=== PATIENT | male | born 1950 | race Caucasian/White ===

== ENCOUNTER 2020-05-18 11:13 | Outpatient (REF) | payer MEDICARE, OTHER, SELFPAY ==
[2020-05-18 13:56] LABS: MANUAL DIFF FLAG NO
[2020-05-18 14:02] LABS: Basophils Percent Auto 0.4 % (0-2); Eosinophils Absolute Auto 0.1 X10*3/uL (0.0-0.4); Eosinophils Percent Auto 2.5 % (0-4); Hematocrit 40.3 % (42-52); Hemoglobin 13.4 g/dl (14.0-18.0); Imm Gran Abs Auto 0.01 X10*3/uL (0.00-0.03); Imm Gran Pct Auto 0.2 % (0.0-0.4); Lymphocytes Absolute Auto 1.6 X10*3/uL (1.2-4.9); Lymphocytes Percent Auto 28.4 % (20-40); Mean Corpuscular HGB Conc 33.3 g/dl (31.0-36.0); Mean Corpuscular Hemoglobin 30.7 pg (27.0-33.0); Mean Corpuscular Volume 92.2 fL (80-98); Mean Platelet Volume 11.2 fL (9.4-12.4); Monocytes Absolute Auto 0.4 X10*3/uL (0.1-1.2); Monocytes Percent Auto 7.6 % (2-11); Neutrophils Absolute Auto 3.4 X10*3/uL (2.0-8.3); Neutrophils Percent Auto 60.9 % (45-73); Platelet Count 191 X10*3/uL (160-400); Red Blood Count 4.37 X10*6/uL (4.60-5.80); White Blood Count 5.5 X10*3/uL (4.8-10.8)
[2020-05-18 14:22] LABS: Estimated Average Glucose 111 mg/dL; Hemoglobin A1c % 5.5 %
[2020-05-18 14:37] LABS: Alanine Aminotransferase 16 U/L (0-40); Albumin Level 4.1 g/dL (3.5-5.0); Alkaline Phosphatase 44 U/L (39-117); Anion Gap 12 (12-20); Aspartate Amino Transferase 18 U/L (5-37); Bilirubin Total 0.7 mg/dL (0.0-1.0); Blood Urea Nitrogen 23 mg/dL (9-16); Calcium 8.6 mg/dL (8.4-10.2); Carbon Dioxide 29 mmol/L (22-29); Chloride 105 mmol/L (96-108); Estimated Glomerular Filt Rate > 60; Glucose Random 97 mg/dL (60-115); Potassium 4.4 mmol/l (3.3-5.1); Sodium 142 mmol/L (135-145); Total Protein 6.5 g/dL (6.5-8.0)
[2020-05-18 14:51] LABS: Creatinine Urine 30.78 mg/dL; Microalbumin Urine < 5.0 mg/L
== END 2020-05-18 11:14 | disposition home or self-care (01) ==
LOC: HO.10HDL 11:13
PROVIDERS: Visit Provider Internal Medicine
DX: E11.9 Type 2 diabetes mellitus without complications (principal); E78.00 Pure hypercholesterolemia, unspecified
CPT/HCPCS: 36415; 80053; 82043; 83036; 85025

== ENCOUNTER 2020-09-22 09:46 | Outpatient (REF) | payer MEDICARE, OTHER, SELFPAY ==
[2020-09-22 10:10] LABS: MANUAL DIFF FLAG NO
[2020-09-22 10:13] LABS: Basophils Percent Auto 0.7 % (0-2); Eosinophils Absolute Auto 0.1 X10*3/uL (0.0-0.4); Eosinophils Percent Auto 1.8 % (0-4); Hemoglobin 13.7 g/dl (14.0-18.0); Imm Gran Abs Auto 0.01 X10*3/uL (0.00-0.03); Imm Gran Pct Auto 0.2 % (0.0-0.4); Lymphocytes Absolute Auto 1.3 X10*3/uL (1.2-4.9); Lymphocytes Percent Auto 29.7 % (20-40); Mean Corpuscular HGB Conc 33.4 g/dl (31.0-36.0); Mean Corpuscular Hemoglobin 30.9 pg (27.0-33.0); Mean Corpuscular Volume 92.6 fL (80-98); Mean Platelet Volume 10.6 fL (9.4-12.4); Monocytes Absolute Auto 0.3 X10*3/uL (0.1-1.2); Monocytes Percent Auto 6.4 % (2-11); Neutrophils Absolute Auto 2.8 X10*3/uL (2.0-8.3); Neutrophils Percent Auto 61.2 % (45-73); Platelet Count 179 X10*3/uL (160-400); Red Blood Count 4.43 X10*6/uL (4.60-5.80); Red Cell Distribution Width 13.2 % (11.0-16.0); White Blood Count 4.5 X10*3/uL (4.8-10.8)
[2020-09-22 10:35] LABS: Estimated Average Glucose 108 mg/dL; Hemoglobin A1c % 5.4 %
[2020-09-22 10:50] LABS: Alanine Aminotransferase 16 U/L (0-40); Albumin Level 4.1 g/dL (3.5-5.0); Alkaline Phosphatase 46 U/L (39-117); Anion Gap 13 (12-20); Aspartate Amino Transferase 17 U/L (5-37); Blood Urea Nitrogen 16 mg/dL (9-16); Calcium 8.4 mg/dL (8.4-10.2); Carbon Dioxide 27 mmol/L (22-29); Chloride 105 mmol/L (96-108); Cholesterol 154 mg/dL; Estimated Glomerular Filt Rate > 60; Glucose Fasting 111 mg/dL (60-99); HDL Cholesterol 74 mg/dL; LDL Cholesterol Calculated 71 mg/dl; Potassium 3.9 mmol/L (3.3-5.1); Sodium 141 mmol/L (135-145); Total Protein 6.6 g/dL (6.5-8.0); Triglycerides 46 mg/dL
[2020-09-22 10:57] LABS: Creatinine Urine 139.72 mg/dL; Microalbum/Creatinine Ratio Ur 4.2 ug/mg cr
[2020-09-22 11:10] LABS: Prostate Specific Antigen Scr 0.48 ng/mL (<0.05-4.0)
== END 2020-09-22 09:47 | disposition home or self-care (01) ==
LOC: HO.10HDL 09:46
PROVIDERS: Visit Provider Internal Medicine
DX: Z12.5 Encounter for screening for malignant neoplasm of prostate (principal); E78.00 Pure hypercholesterolemia, unspecified; E11.9 Type 2 diabetes mellitus without complications; N40.0 Benign prostatic hyperplasia without lower urinary tract symptoms; Z86.010 Personal history of colon polyps
CPT/HCPCS: 36415; 80053; 80061; 82043; 83036; 84153; 85025

== ENCOUNTER 2020-12-01 07:06 | Day surgery (SDC) | payer MEDICARE, OTHER, SELFPAY ==
[2020-11-23 16:18] VITALS: BMI 26.2
--- NOTE | 2020-11-29 14:02 | P.CONAN_ITS ---
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: Yes ( with dementia) Patient Tobacco Use Status: Former Tobacco user Quit Date: quit years ago Are you DNR?: No Advance Directives: No Advance Directives Information Provided: No Advance Directives on File: No Meds Allergies Allergy/AdvReac Type Severity Reaction Status Date / Time No Known Allergies Allergy Verified 11/23/20 16:20 Home Medications Medication Instructions Recorded Confirmed Last Taken Type coQ10 (ubiquinol) 200 mg PO DAILY 11/23/20 11/23/20 Unknown History metformin 500 mg PO DAILY 11/23/20 12/01/20 11/30/20 08:00 History multivitamin 1 tab PO DAILY 11/23/20 11/23/20 Unknown History simvastatin 20 mg PO DAILY 11/23/20 11/23/20 Unknown History Exam Exam Date and Time: November 29, 2020 1402 Height,Weight and Vital Signs: Height 5 ft 7 in Weight 75.75 kg Pertinent Lab Results Pertinent Lab Results: Laboratory Tests 09/22/20 09/22/20 10:00 10:00 WBC 4.5 L Hgb 13.7 L Hct 41.0 L Plt Count 179 Sodium 141 Potassium 3.9 Chloride 105 Carbon Dioxide 27 BUN 16 Creatinine 0.69 Assessment and Plan Assessment Anesthesia Assessment: Chart Reviewed Documented by User: Alyssa Elise 12/01/20 07:58 [facility] Past Medical History Medical History Diabetes Elevated cholesterol Mild heartburn Surgical History Surgical History Hx of colonoscopy Hx of hernia repair Social History Social History 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: Yes ( with dementia) Patient Tobacco Use Status: Former Tobacco user Quit Date: quit years ago Are you DNR?: No Advance Directives: No Advance Directives Information Provided: No Advance Directives on File: No Meds Allergies Allergy/AdvReac Type Severity Reaction Status Date / Time No Known Allergies Allergy Verified 11/23/20 16:20 Home Medications Medication Instructions Recorded Confirmed Last Taken Type coQ10 (ubiquinol) 200 mg PO DAILY 11/23/20 11/23/20 Unknown History metformin 500 mg PO DAILY 11/23/20 12/01/20 11/30/20 08:00 History multivitamin 1 tab PO DAILY 11/23/20 11/23/20 Unknown History simvastatin 20 mg PO DAILY 11/23/20 11/23/20 Unknown History Exam Airway Mallampati Class: II TM Dist: >3cm Neck ROM: Full Assessment and Plan Assessment Anesthesia Assessment: Anesthesia Plan Discussed and Chart Reviewed Final Anesthetic Review NPO: Yes ASA Class: II Final Preanesthetic Review: No Changes in Pt Med Stat, Meds/Allgs Chart Reviewed, Consent Obtained/Reviewed and Anes Risks/Benef Reviewed Patient Risk: Low Procedure Risk: Low Assessment/Block/Sedation in SS: Assess/Block/Sedation-SS Anesthetic Plan Anesthetic Plan: MAC: Disposition: Standard PACU
[2020-12-01 07:38] VITALS: BP 133/63; PULSE 93; RESP 16; TEMP 37; O2SAT 95
[2020-12-01 07:51] LABS: Glucose, Whole Blood 92 mg/dL (60-115)
[2020-12-01] MEDS: Lactated Ringers 1,000 ML 100 ML IVCONT (07:55)
[2020-12-01 09:20] VITALS: BP 87/43; PULSE 75; RESP 16; TEMP 36.4; O2SAT 95
--- NOTE | 2020-12-01 09:21 | PM.OP ---
Brief Operative Note Date of Service: 12/01/20 Pre-op diagnosis: Screening Post-op diagnosis: other (Colon polyps) Procedure: Colonoscopy to the cecum with snare polypectomy, and biopsy with removal of polyps Surgeon: Ernie Gomes Anesthesia: MAC Was an Truck Sales Representative used for this Procedure?: No Estimated blood loss (mL): 3.0 Pathology: other (A. Ascending colon polyps B. Cecal polyp) Condition: stable Disposition: PACU
[2020-12-01 09:35] VITALS: BP 102/60; PULSE 75; RESP 16; TEMP 36.4; O2SAT 96
--- NOTE | 2020-12-01 09:56 | OP_ITS ---
SURGEON: Ernie Gomes MD INDICATIONS: The patient presents for evaluation of colorectal cancer screening and prior history of tubular adenoma of the colon. Full consent obtained from him for this, including risks of bleeding and perforation. PREOPERATIVE DIAGNOSIS: Personal history of tubular adenoma of the colon and colorectal cancer screening. POSTOPERATIVE DIAGNOSIS: PROCEDURE PERFORMED: ESTIMATED BLOOD LOSS: COMPLICATIONS: ANESTHESIA: Monitored anesthesia care. ASSISTANTS: SPECIMENS: POSTOPERATIVE DIAGNOSES: Personal history of tubular adenoma of the colon and colorectal cancer screening, colon polyp, sigmoid diverticulosis, and internal hemorrhoids. DESCRIPTION OF PROCEDURE: The patient was placed in the left lateral decubitus position. The digital rectal exam revealed no abnormalities. The Olympus video pediatric colonoscope was entered into the rectum advanced easily to the cecum. Once in the cecum, I did identify cecal pouch with appendiceal orifice, and a normal-appearing ileocecal valve. The entire cecum was well visualized and appeared normal other than a 3 mm polyp near the appendiceal orifice that was biopsied and completely removed with cold biopsy forceps. The scope was slowly withdrawn assessing all mucosal surfaces carefully. Preparation was excellent. In the ascending colon, where 2 approximately 6 to 8 mm polyps, which were each snared and recovered and placed in the same container. Both polypectomy sites appeared clean, without any sign of residual polyp nor bleeding. Also, in the ascending colon, was an approximately 3 mm polyp, which was biopsied and completely removed with cold biopsy forceps and also placed in the same container as the other 2 polyps. I did not visualize any other polyps, colitis, or angiodysplasia. There was a moderate amount of sigmoid diverticulosis. In the rectum, scope was retroflexed visualizing internal hemorrhoids, but no other pathology. The rectal mucosa appeared normal. The scope was straightened and withdrawn from the patient. He tolerated the procedure well and was returned to the recovery area in stable condition. IMPRESSION: 1. Colon polyps, status post snare polypectomy, and biopsy removal. 2. Diverticulosis. 3. Internal hemorrhoids. PLAN: The results of the pathology will be checked. I would recommend a repeat colonoscopy in 5 years for further screening. He was advised not to use any aspirin or NSAIDs for 1 week. PROCEDURES PERFORMED: colonoscopy to cecum with snare polypectomy, and biopsy and removal of polyp. MD SUDHEER Lam/SCARLETL / [id number]
== END 2020-12-01 10:17 | disposition home or self-care (01) ==
PROVIDERS: PCP Internal Medicine; Visit Provider Internal Medicine
PROC: 0DJD8ZZ Inspection of Lower Intestinal Tract, Via Natural or Artificial Opening Endoscopic (ICD-10-PCS; CPT 45378; principal; 2020-12-01 08:20)
DX: Z12.11 Encounter for screening for malignant neoplasm of colon (principal); Z86.010 Personal history of colon polyps; D12.2 Benign neoplasm of ascending colon; K63.5 Polyp of colon; K57.30 Diverticulosis of large intestine without perforation or abscess without bleeding; K64.8 Other hemorrhoids; E11.9 Type 2 diabetes mellitus without complications; Z79.84 Long term (current) use of oral hypoglycemic drugs; Z79.899 Other long term (current) drug therapy; Z87.891 Personal history of nicotine dependence
CPT/HCPCS: 45385; 45380; 82947; 88305; J2370

== ENCOUNTER 2021-03-22 12:23 | Outpatient (REF) | payer MEDICARE, OTHER, SELFPAY ==
[2021-03-22 14:35] LABS: Estimated Average Glucose 108 mg/dL; Hemoglobin A1c % 5.4 %
[2021-03-22 14:44] LABS: Anion Gap 11 (12-20); Blood Urea Nitrogen 25 mg/dL (9-16); Carbon Dioxide 26 mmol/L (22-29); Chloride 107 mmol/L (96-108); Estimated Glomerular Filt Rate > 60; Glucose Random 140 mg/dL (60-115); Potassium 4.1 mmol/L (3.3-5.1); Sodium 140 mmol/L (135-145)
== END 2021-03-22 12:24 | disposition home or self-care (01) ==
LOC: HO.10HDL 12:23
PROVIDERS: Visit Provider Internal Medicine
DX: E11.9 Type 2 diabetes mellitus without complications (principal); E78.00 Pure hypercholesterolemia, unspecified
CPT/HCPCS: 36415; 80048; 83036

== ENCOUNTER 2021-09-22 09:32 | Outpatient (REF) | payer MEDICARE, OTHER, SELFPAY ==
[2021-09-22 09:53] LABS: MANUAL DIFF FLAG NO
[2021-09-22 10:26] LABS: Basophils Percent Auto 0.6 % (0-2); Eosinophils Absolute Auto 0.2 X10*3/uL (0.0-0.4); Eosinophils Percent Auto 4.3 % (0-4); Hematocrit 43.1 % (42.0-52.0); Hemoglobin 14.3 g/dl (14.0-18.0); Imm Gran Abs Auto 0.02 X10*3/uL (0.00-0.03); Imm Gran Pct Auto 0.4 % (0.0-0.4); Lymphocytes Absolute Auto 1.1 X10*3/uL (1.2-4.9); Lymphocytes Percent Auto 22.1 % (20-40); Mean Corpuscular HGB Conc 33.2 g/dl (31.0-36.0); Mean Corpuscular Hemoglobin 30.6 pg (27.0-33.0); Mean Corpuscular Volume 92.1 fL (80.0-98.0); Mean Platelet Volume 10.5 fL (9.4-12.4); Monocytes Absolute Auto 0.4 X10*3/uL (0.1-1.2); Monocytes Percent Auto 8.4 % (2-11); Neutrophils Absolute Auto 3.3 x10*3/uL (2.0-8.3); Neutrophils Percent Auto 64.2 % (45-73); Platelet Count 224 X10*3/uL (160-400); Red Blood Count 4.68 X10*6/uL (4.60-5.80); Red Cell Distribution Width 13.3 % (11.0-16.0); White Blood Count 5.1 X10*3/uL (4.8-10.8)
[2021-09-22 10:36] LABS: Alanine Aminotransferase 16 U/L (0-40); Albumin Level 4.1 g/dL (3.5-5.0); Alkaline Phosphatase 54 U/L (39-117); Anion Gap 14 (12-20); Aspartate Amino Transferase 19 U/L (5-37); Bilirubin Total 0.6 mg/dL (0.0-1.0); Blood Urea Nitrogen 15 mg/dL (9-16); Calcium 9.5 mg/dL (8.4-10.2); Carbon Dioxide 29 mmol/L (22-29); Chloride 104 mmol/L (96-108); Cholesterol 190 mg/dL; Estimated Glomerular Filt Rate > 60; Glucose Fasting 117 mg/dL (60-99); HDL Cholesterol 81 mg/dL; LDL Cholesterol Calculated 99 mg/dl; Potassium 4.5 mmol/L (3.3-5.1); Sodium 142 mmol/L (135-145); Total Protein 7.1 g/dL (6.5-8.0); Triglycerides 51 mg/dL
[2021-09-22 10:37] LABS: Estimated Average Glucose 117 mg/dL; Hemoglobin A1c % 5.7 %
[2021-09-22 10:39] LABS: Creatinine Urine 105.62 mg/dL; Microalbum/Creatinine Ratio Ur 4.7 ug/mg cr
[2021-09-22 10:59] LABS: Prostate Specific Antigen 0.87 ng/mL (<0.05-4.0)
== END 2021-09-22 09:33 | disposition home or self-care (01) ==
LOC: HO.LAB 09:32
PROVIDERS: PCP Internal Medicine; Visit Provider Internal Medicine
DX: E78.00 Pure hypercholesterolemia, unspecified (principal); E11.9 Type 2 diabetes mellitus without complications; Z86.010 Personal history of colon polyps; Z12.5 Encounter for screening for malignant neoplasm of prostate
CPT/HCPCS: 36415; 80053; 80061; 82043; 83036; 84153; 85025

== ENCOUNTER 2022-03-21 14:12 | Outpatient (REF) | payer MEDICARE, OTHER, SELFPAY ==
[2022-03-21 17:33] LABS: Anion Gap 14 (12-20); Blood Urea Nitrogen 30 mg/dL (9-16); Calcium 9.3 mg/dL (8.4-10.2); Carbon Dioxide 30 mmol/L (22-29); Chloride 102 mmol/L (96-108); Estimated Glomerular Filt Rate > 60; Glucose Random 110 mg/dL (60-115); Potassium 4.6 mmol/L (3.3-5.1); Sodium 141 mmol/L (135-145)
[2022-03-21 17:43] LABS: Estimated Average Glucose 108 mg/dL; Hemoglobin A1c % 5.4 %
== END 2022-03-21 14:13 | disposition home or self-care (01) ==
LOC: HO.HMGCLDS 14:12
PROVIDERS: PCP Internal Medicine; Visit Provider Internal Medicine
DX: E11.9 Type 2 diabetes mellitus without complications (principal); E78.00 Pure hypercholesterolemia, unspecified
CPT/HCPCS: 36415; 80048; 83036

== ENCOUNTER 2022-10-25 06:01 | Outpatient (REF) | payer MEDICARE, OTHER, SELFPAY ==
[2022-10-25 11:39] LABS: MANUAL DIFF FLAG NO
[2022-10-25 11:55] LABS: Appearance Urine Clear; Basophils Percent Auto 0.6 % (0-2); Color Urine Yellow; Eosinophils Absolute Auto 0.1 X10*3/uL (0.0-0.4); Eosinophils Percent Auto 2.9 % (0-4); Glucose Urine UA Negative (Negative); Hematocrit 40.9 % (42.0-52.0); Hemoglobin 13.5 g/dl (14.0-18.0); Imm Gran Abs Auto 0.01 X10*3/uL (0.00-0.03); Imm Gran Pct Auto 0.2 % (0.0-0.4); Leukocyte Esterase Urine Negative (Negative); Lymphocytes Absolute Auto 1.2 X10*3/uL (1.2-4.9); Lymphocytes Percent Auto 24.9 % (20-40); Mean Corpuscular Hemoglobin 31.2 pg (27.0-33.0); Mean Corpuscular Volume 94.5 fL (80.0-98.0); Monocytes Absolute Auto 0.3 X10*3/uL (0.1-1.2); Monocytes Percent Auto 7.1 % (2-11); Neutrophils Absolute Auto 3.1 x10*3/uL (2.0-8.3); Neutrophils Percent Auto 64.3 % (45-73); Nitrite Urine Negative (Negative); PH 6.5 (5.0-9.0); Platelet Count 191 X10*3/uL (160-400); Red Blood Count 4.33 X10*6/uL (4.60-5.80); Red Cell Distribution Width 13.8 % (11.0-16.0); Specific Gravity - Urine <= 1.005 (1.005-1.025); Urine Blood Negative (Negative); Urine Ketones Negative (Negative); Urine Protein Negative (Neg-Trace); White Blood Count 4.8 X10*3/uL (4.8-10.8)
[2022-10-25 12:08] LABS: Estimated Average Glucose 108 mg/dL; Hemoglobin A1c % 5.4 %
[2022-10-25 12:38] LABS: Alanine Aminotransferase 15 U/L (0-40); Alkaline Phosphatase 50 U/L (39-117); Anion Gap 10 (12-20); Aspartate Amino Transferase 19 U/L (5-37); Bilirubin Total 1.2 mg/dL (0.0-1.0); Blood Urea Nitrogen 20 mg/dL (9-16); Calcium 9.1 mg/dL (8.4-10.2); Carbon Dioxide 30 mmol/L (22-29); Chloride 105 mmol/L (96-108); Cholesterol 184 mg/dL; Estimated Glomerular Filt Rate > 60; Glucose Fasting 113 mg/dL (60-99); HDL Cholesterol 85 mg/dL; LDL Cholesterol Calculated 86 mg/dl; Potassium 4.2 mmol/L (3.3-5.1); Sodium 141 mmol/L (135-145); Total Protein 6.5 g/dL (6.5-8.0); Triglycerides 68 mg/dL
[2022-10-25 12:55] LABS: Prostate Specific Antigen 0.66 ng/mL (<0.05-4.0)
[2022-10-25 12:58] LABS: Creatinine Urine 19.97 mg/dL; Microalbumin Urine < 5.0 mg/L
== END 2022-10-25 06:02 | disposition home or self-care (01) ==
LOC: HO.HMGCLDS 06:01
PROVIDERS: PCP Internal Medicine; Visit Provider Internal Medicine
DX: E78.00 Pure hypercholesterolemia, unspecified (principal); E11.9 Type 2 diabetes mellitus without complications; Z12.5 Encounter for screening for malignant neoplasm of prostate
CPT/HCPCS: 36415; 80053; 80061; 81003; 82043; 83036; 84153; 85025

== ENCOUNTER → 2022-11-04 14:01 | Outpatient (REF) | payer MEDICARE, OTHER, SELFPAY ==
--- NOTE | 2022-11-04 14:06 | CA_ITS ---
Transthoracic Echocardiogram Patient (Last, First, Middle): Phill Pang S Gender: Male Date of : 1950 Age: 72 Procedure Date: 11/04/2022 Procedure Type: Transthoracic Echocardiogram Location: OP Height: 167.64 cm Weight: 68.04 kg BSA: 1.77 m2 Heart Rate: 76 bpm BP: 120 / 70 mmHg Acid Cleaner: CANDIE Referring MD: Martín Krishnan MD Symptoms: R01.1 MURMUR Study Quality: Adequate ECG Rhythm: Sinus Conclusions: - The left ventricular systolic function is normal. The visually estimated ejection fraction is between 55-60%. - There is severe calcification of the aortic valve. There is moderate aortic valve stenosis. - There is mild mitral valve regurgitation. Findings Left Ventricle Normal left ventricular cavity size. There is normal left ventricular wall thickness. The left ventricular systolic function is normal. The visually estimated ejection fraction is between 55-60%. There is no evidence of regional wall motion abnormalities. Diastolic function is normal for age. LV peak GLS -18.8%. Right Ventricle Normal right ventricular cavity size and systolic function. Atria Both atria are normal in size. Aortic Valve There is severe calcification of the aortic valve. There is moderate aortic valve stenosis. The peak aortic velocity is 2.82 m/s with a calculated peak gradient of 32 mmHg. The mean gradient is 20 mmHg. The aortic valve area is 1.34 cm2. There is no aortic valve regurgitation. Dimensionless index 0.31. Normal stroke volume index. Mitral Valve The mitral valve appears normal. There is mild mitral valve regurgitation. There is no mitral valve stenosis. Pulmonic Valve The pulmonic valve is likely normal. Tricuspid Valve Normal tricuspid valve structure. There is mild tricuspid valve regurgitation. There is no evidence of pulmonary hypertension. Great Vessels The asc aorta is normal in size. Venous The inferior vena cava is normal in size and collapses greater than 50% with inspiration. Pericardium/Pleural There is no evidence of pericardial effusion. Prior Study Comparison No prior study available for comparison. Measurements 2D Linear Measurements IVSd: 0.91 0.6-0.9/0.6-1.0 cm LVIDd: 4.79 3.9-5.3/4.2-5.9 cm LVIDd Index: 2.71 2.4-3.2/2.2-3.1 cm/m2 LVIDs: 2.60 2.0-3.6 cm LVPWd: 0.96 0.7-1.1 cm LA Diam: 3.30 2.7-3.8/3.0-4.0 cm LAIDs Index: 1.86 1.5-2.3 cm/m2 LV Mass: 192.93 67-162/88-224 g LV Mass Index: 109.00 43-95/49-115 g/m2 LVOT Diam: 2.40 3.0+(-)1.3 cm 2D Systolic Function EF 4C: 58.60 >55% EF 2C: 50.40 >55% EF BiP: 54.90 >55% Mitral Valve MV Pk E: 0.91 MV PK A: 0.84 MV Decel Time: 201.00 E/A: 1.10 E'Lateral: 10.80 E'Medial: 10.20 E/E' Med: 9.00 E/E' Lat: 8.50 PHT: 59.00 MVA PHT: 3.73 Decel [place]: 4.55 Aortic Valve AoV Pk Cheikh: 2.82 AoV Mn Cheikh: 2.09 AoV VTI: 0.67 AoV Pk Grad: 32.00 Aov Mn Grad: 20.00 LEXI Cont.VTI: 1.34 LVOT LVOT Pk [place]ikh: 0.88 LVOT Mn Cheikh: 0.64 LVOT VTI: 0.20 LVOT Pk Grad: 3.00 LVOT Mn Grad: 2.00 LVOT Diam: 2.40 LVOT Area: 4.52 Diastolic Function MV Pk E: 0.91 MV Pk A: 0.84 E/A: 1.10 E'Medial: 10.20 E/E' Med: 9.00 E' Laterial: 10.80 E/E' Lat: 8.50 Right Ventricle TAPSE (mm): 30.00 TVS' Cheikh: 15.80 Tricuspid Valve TR Pk Cheikh: 2.30 TR Pk Grad: 21.00 RA Press: 3.00 RVSP: 24.00 Great Vessels Aorta Sinus of Valsalva: 3.60 2.0-3.5 cm Ao Asc: 3.10 2.1-3.4 cm Pulmonary Valve PV Pk Cheikh: 0.98 Peak PV Grad: 4.00 Updated in Other Vendor System with Status of Final Baldev Linod MD electronically signed on 11/04/2022 4:25:35 PM with status of Final
== END ==
LOC: HO.CARD 14:01
PROVIDERS: PCP Internal Medicine; Visit Provider Internal Medicine
DX: R01.1 Cardiac murmur, unspecified (principal)
CPT/HCPCS: 93306

== ENCOUNTER 2023-03-29 06:36 | Outpatient (REF) | payer MEDICARE, OTHER, SELFPAY ==
[2023-03-29 11:24] LABS: MANUAL DIFF FLAG NO
[2023-03-29 11:34] LABS: Basophils Percent Auto 0.6 % (0-2); Eosinophils Absolute Auto 0.1 X10*3/uL (0.0-0.4); Eosinophils Percent Auto 2.1 % (0-4); Hematocrit 41.2 % (42.0-52.0); Hemoglobin 13.9 g/dl (14.0-18.0); Imm Gran Abs Auto 0.01 X10*3/uL (0.00-0.03); Imm Gran Pct Auto 0.2 % (0.0-0.4); Lymphocytes Absolute Auto 1.2 X10*3/uL (1.2-4.9); Lymphocytes Percent Auto 24.4 % (20-40); Mean Corpuscular HGB Conc 33.7 g/dl (31.0-36.0); Mean Corpuscular Hemoglobin 31.6 pg (27.0-33.0); Mean Corpuscular Volume 93.6 fL (80.0-98.0); Mean Platelet Volume 11.2 fL (9.4-12.4); Monocytes Absolute Auto 0.4 X10*3/uL (0.1-1.2); Monocytes Percent Auto 8.2 % (2-11); Neutrophils Absolute Auto 3.1 x10*3/uL (2.0-8.3); Neutrophils Percent Auto 64.5 % (45-73); Platelet Count 175 X10*3/uL (160-400); Red Cell Distribution Width 14.3 % (11.0-16.0); White Blood Count 4.8 X10*3/uL (4.8-10.8)
[2023-03-29 11:48] LABS: Anion Gap 13 (12-20); Blood Urea Nitrogen 21 mg/dL (9-16); Calcium 9.5 mg/dL (8.4-10.2); Carbon Dioxide 28 mmol/L (22-29); Chloride 105 mmol/L (96-108); Estimated Glomerular Filt Rate > 60; Glucose Random 108 mg/dL (60-115); Magnesium 2.1 mg/dL (1.6-2.6); Potassium 4.3 mmol/L (3.3-5.1); Sodium 142 mmol/L (135-145)
[2023-03-29 12:05] LABS: Free T4 (Free Thyroxine) 0.88 ng/dL (0.71-1.85); Thyroid Stimulating Hormone 1.74 uIU/mL (0.32-4.0)
== END 2023-03-29 06:37 | disposition home or self-care (01) ==
LOC: HO.HMGCLDS 06:36
PROVIDERS: PCP Internal Medicine; Visit Provider Internal Medicine
DX: I49.3 Ventricular premature depolarization (principal); E11.9 Type 2 diabetes mellitus without complications
CPT/HCPCS: 36415; 80048; 83735; 84439; 84443; 85025

== ENCOUNTER → 2023-04-01 09:15 | Outpatient (REF) | payer MEDICARE, OTHER, SELFPAY | LOC: HO.CARD 09:15 | PROVIDERS: PCP Internal Medicine; Visit Provider Internal Medicine | DX: I49.3 Ventricular premature depolarization (principal); R94.31 Abnormal electrocardiogram [ECG] [EKG] | CPT/HCPCS: 93242 ==

== ENCOUNTER → 2023-04-01 09:19 | Outpatient (BNV) | payer MEDICARE, OTHER, SELFPAY | PROVIDERS: PCP Internal Medicine; Visit Provider Internal Medicine | DX: I49.3 Ventricular premature depolarization (principal) | CPT/HCPCS: 93227 ==

== ENCOUNTER 2023-06-27 15:14 | Outpatient (REF) | payer MEDICARE, OTHER, SELFPAY ==
[2023-06-27 16:03] LABS: MANUAL DIFF FLAG NO
[2023-06-27 16:10] LABS: Basophils Percent Auto 0.5 % (0-2); Eosinophils Absolute Auto 0.2 X10*3/uL (0.0-0.4); Eosinophils Percent Auto 2.6 % (0-4); Hemoglobin 13.6 g/dl (14.0-18.0); Imm Gran Abs Auto 0.01 X10*3/uL (0.00-0.03); Imm Gran Pct Auto 0.2 % (0.0-0.4); Lymphocytes Absolute Auto 1.5 X10*3/uL (1.2-4.9); Mean Corpuscular Hemoglobin 31.6 pg (27.0-33.0); Mean Platelet Volume 10.9 fL (9.4-12.4); Monocytes Absolute Auto 0.5 X10*3/uL (0.1-1.2); Monocytes Percent Auto 8.5 % (2-11); Neutrophils Absolute Auto 3.9 x10*3/uL (2.0-8.3); Neutrophils Percent Auto 63.2 % (45-73); Platelet Count 170 X10*3/uL (160-400); Red Cell Distribution Width 13.9 % (11.0-16.0); White Blood Count 6.2 X10*3/uL (4.8-10.8)
[2023-06-27 16:22] LABS: Estimated Average Glucose 103 mg/dL; Hemoglobin A1c % 5.2 % (<6.0)
[2023-06-27 16:42] LABS: Creatinine Urine 68.27 mg/dL; Microalbumin Urine < 5.0 mg/L
[2023-06-27 17:58] LABS: Alanine Aminotransferase 15 U/L (0-40); Alkaline Phosphatase 44 U/L (39-117); Anion Gap 11 (12-20); Aspartate Amino Transferase 19 U/L (5-37); Bilirubin Total 0.6 mg/dL (0.0-1.0); Blood Urea Nitrogen 29 mg/dL (9-16); Carbon Dioxide 29 mmol/L (22-29); Chloride 105 mmol/L (96-108); Estimated Glomerular Filt Rate > 60; Glucose Random 93 mg/dL (60-115); Potassium 3.7 mmol/L (3.3-5.1); Sodium 141 mmol/L (135-145); Total Protein 6.8 g/dL (6.5-8.0)
== END 2023-06-27 15:15 | disposition home or self-care (01) ==
LOC: HO.HMGCLDS 15:14
PROVIDERS: PCP Internal Medicine; Visit Provider Internal Medicine
DX: E11.9 Type 2 diabetes mellitus without complications (principal); E78.00 Pure hypercholesterolemia, unspecified; Z95.2 Presence of prosthetic heart valve
CPT/HCPCS: 36415; 80053; 82570; 83036; 85025

== ENCOUNTER 2023-07-07 08:29 | Outpatient (REF) | payer MEDICARE, OTHER, SELFPAY ==
--- NOTE | ~2023-07-07 | US_ITS ---
EXAMINATION: US EXTRACRANIAL CAROTID DUPLEX, BILATERAL CLINICAL INFORMATION: Left carotid bruit. COMPARISON: None available. TECHNIQUE: Real-time ultrasound and Doppler techniques (integrating B-mode 2-D vascular images, Doppler spectral analysis and color-flow Doppler imaging) were utilized to interrogate the extracranial carotid arteries, the vertebral arteries and proximal subclavian arteries bilaterally. The degree of stenosis is determined by criteria similar to NASCET. FINDINGS: Right Side: 1. There is moderate atherosclerotic plaque seen in the bifurcation/proximal ICA region. 2. The common carotid artery PSV proximally is 97 cm/s and distally 93 cm/s. 3. The proximal internal carotid artery velocities are 105 cm/s systolic and 21 cm/s diastolic. 4. The proximal external carotid artery PSV is 115 cm/s. 5. The vertebral artery shows antegrade flow. 6. The subclavian artery waveforms are normal. Left Side: 1. There is moderate atherosclerotic plaque seen in the bifurcation/proximal ICA region. 2. The common carotid artery PSV proximally is 111 cm/s and distally 105 cm/s. 3. The proximal internal carotid artery velocities are 106 cm/s systolic and 23 cm/s diastolic. 4. The proximal external carotid artery PSV is 146 cm/s. 5. The vertebral artery shows antegrade flow. 6. The subclavian artery waveforms are normal. US/US carotid duplex BI IMPRESSION: 1. RIGHT: Minimal, non-hemodynamically significant stenosis of the proximal right internal carotid artery corresponding to a 0-49% stenosis by velocity criteria. 2. LEFT: Minimal, non-hemodynamically significant stenosis of the proximal left internal carotid artery corresponding to a 0-49% stenosis by velocity criteria.
== END 2023-07-07 08:30 | disposition home or self-care (01) ==
LOC: HO.HMGCX 08:29
PROVIDERS: PCP Internal Medicine; Visit Provider Internal Medicine
DX: R09.89 Other specified symptoms and signs involving the circulatory and respiratory systems (principal)
CPT/HCPCS: 93880

== ENCOUNTER → 2023-10-22 13:56 | Outpatient (REF) | payer MEDICARE, OTHER, SELFPAY ==
--- NOTE | 2023-10-22 13:58 | CA_ITS ---
Transthoracic Echocardiogram Patient (Last, First, Middle): Phill Pang S Gender: Male Date of : 1950 Age: 73 Procedure Date: 10/22/2023 Procedure Type: Transthoracic Echocardiogram Location: OP Height: 167.64 cm Weight: 81.65 kg BSA: 1.91 m2 Heart Rate: bpm BP: 110 / 66 mmHg Drug Worker: DOMINIC Referring MD: Martín Krishnan MD Pot Room Tapper: Enoch Dale MD Symptoms: CARDIAC MURMUR,UNSPECIFIED Study Quality: Adequate ECG Rhythm: Sinus Conclusions: - 1. Normal LV systolic function with LVEF of 60-65% with grade 1 diastolic dysfunction 2. Moderate to severe aortic stenosis, paradoxical low-flow 3. Normal RV systolic pressure 4. No gross pericardial effusion Findings Left Ventricle Normal left ventricular size, thickness, and systolic function. The visually estimated ejection fraction is between 60-65%. Spectral Doppler is indicative of an impaired relaxation filling pattern. E/E prime ratio is <8, consistent with normal filling pressures. Peak GLS is -18.2%, within normal limits. Right Ventricle Normal right ventricular cavity size and systolic function. Atria Both atria are normal in size. There is no evidence of interatrial shunt. Aortic Valve There is moderate calcification of the aortic valve. There is moderate thickening of the aortic valve. There is moderate to severe aortic valve stenosis. The peak aortic gradient is 44 mmHg.The mean gradient is 27 mmHg. The aortic valve area is 1.12 cm2. There is no aortic valve regurgitation. Mitral Valve There is mild anterior and posterior mitral leaflet thickening. There is mild mitral annular calcification. There is trace mitral valve regurgitation. There is no mitral valve stenosis. Pulmonic Valve The pulmonic valve is likely normal. Tricuspid Valve Normal tricuspid valve structure. There is mild tricuspid valve regurgitation. The right ventricular systolic pressure is normal. The right ventricular systolic pressure is 24 mmHg. Normal right atrial pressure. There is no evidence of pulmonary hypertension. Great Vessels All visible segments of the aorta are normal in size. The pulmonary artery was not well visualized. There is no dilatation of the ascending aorta measuring 3.10 cm. Venous The inferior vena cava is normal in size and collapses greater than 50% with inspiration. Pericardium/Pleural There is no evidence of pericardial effusion. Measurements 2D Linear Measurements IVSd: 0.81 0.6-0.9/0.6-1.0 cm LVIDd: 4.86 3.9-5.3/4.2-5.9 cm LVIDd Index: 2.54 2.4-3.2/2.2-3.1 cm/m2 LVIDs: 3.29 2.0-3.6 cm LVPWd: 1.30 0.7-1.1 cm LA Diam: 3.40 2.7-3.8/3.0-4.0 cm LAIDs Index: 1.78 1.5-2.3 cm/m2 LV Mass: 232.62 67-162/88-224 g LV Mass Index: 121.79 43-95/49-115 g/m2 LVOT Diam: 2.30 3.0+(-)1.3 cm 2D Systolic Function EF 4C: 61.00 >55% EF 2C: 63.40 >55% EF BiP: 61.80 >55% Mitral Valve MV Pk E: 0.78 MV PK A: 0.85 MV Decel Time: 195.00 E/A: 0.90 E'Lateral: 10.10 E'Medial: 8.16 E/E' Med: 9.60 E/E' Lat: 7.80 PHT: 57.00 MVA PHT: 3.86 Decel [place]: 4.01 Aortic Valve AoV Pk Cheikh: 3.30 AoV Mn Cheikh: 2.48 AoV VTI: 0.80 AoV Pk Grad: 44.00 Aov Mn Grad: 27.00 LEXI Cont.VTI: 1.12 LVOT LVOT Pk Cheikh: 0.91 LVOT Mn Cheikh: 0.64 LVOT VTI: 0.22 LVOT Pk Grad: 3.00 LVOT Mn Grad: 2.00 LVOT Diam: 2.30 LVOT Area: 4.15 Diastolic Function MV Pk E: 0.78 MV Pk A: 0.85 E/A: 0.90 E'Medial: 8.16 E/E' Med: 9.60 E' Laterial: 10.10 E/E' Lat: 7.80 Right Ventricle TAPSE (mm): 28.90 TVS' Cheikh: 14.70 Tricuspid Valve TR Pk Cheikh: 2.00 TR Pk Grad: 16.00 RA Press: 8.00 RVSP: 24.00 Great Vessels Aorta Sinus of Valsalva: 3.14 2.0-3.5 cm Ao Asc: 3.10 2.1-3.4 cm Updated in Other Vendor System with Status of Final Enoch Dale MD electronically signed on 10/23/2023 4:31:39 PM with status of Final
== END ==
LOC: HO.CARD 13:56
PROVIDERS: PCP Internal Medicine; Visit Provider Internal Medicine
DX: R01.1 Cardiac murmur, unspecified (principal)
CPT/HCPCS: 93306; 93356

== ENCOUNTER → 2023-10-22 13:58 | Outpatient (BNV) | payer MEDICARE, OTHER, SELFPAY | PROVIDERS: PCP Internal Medicine; Visit Provider Internal Medicine Cardiovascular Disease | DX: R01.1 Cardiac murmur, unspecified (principal) | CPT/HCPCS: 93306; 93356 ==

== ENCOUNTER 2024-02-03 10:33 | Outpatient (AMB) | payer MEDICARE, OTHER, SELFPAY ==
[2024-02-03 10:49] VITALS: BP 128/64; PULSE 83; BMI 24.2
--- NOTE | 2024-02-03 10:49 | A.OFFVIS_ITS ---
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 He does not have any known coronary disease myocardial infarction or in fact any known cardiac issues. He states he is quite active with no limitations. No issues like chest pain or shortness of breath or dizzy spells or syncope or any other cardiac symptoms. Seems to have diabetes and high cholesterol on medications. No major cardiac issues in his family. [facility] Medical History Diabetes Mild heartburn Elevated cholesterol Surgical History Hx of hernia repair Hx of colonoscopy Family History (Updated 02/03/24 @ 11:08 by Baldev Lindo MD) Unknown No problems noted. 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: Yes ( with dementia) Alcohol intake: current Alcohol intake frequency: holidays/special occasions only Comment: [place]-small glass qod Patient Tobacco Use Status: Former Tobacco user Review of Systems Const Denies chills, Denies daytime sleepiness, Denies fatigue, Denies fever(s), Denies poor appetite, Denies snoring, Denies stops breathing during sleep, Denies weakness, Denies weight gain and Denies weight loss Eyes Denies loss of vision ENT Denies dizziness and Denies hearing loss Card Denies chest pain, Denies irregular heart rhythm, Denies claudication, Denies leg edema, Denies lightheadedness, Denies palpitations, Denies dyspnea on exertion and Denies orthopnea Resp Denies cough, Denies excessive phlegm production, Denies dyspnea on exertion, Denies snoring and Denies wheezing GI Denies abdominal pain, Denies hematochezia, Denies change in bowel habits, Denies nausea and Denies vomiting Denies dysuria and Denies urinary frequency Musc Denies arthralgias, Denies muscle weakness, Denies numbness and Denies other Skin/Breast Denies nail changes and Denies rash Neuro Denies Abnormal speech present, Denies dizziness, Denies loss of vision, Denies memory loss, Denies numbness and Denies weakness Psych Denies depression and Denies memory loss Endo Denies fatigue and Denies palpitations Leeroy/Lymph Denies easy bruising Aller/Immun Denies wheezing Physical Exam Vital Signs: Last Vital Signs Pulse 83 02/03/24 10:49 BP 128/64 02/03/24 10:49 BMI result Body Mass Index 24.2 Const General: comfortable and no acute distress Orientation/consciousness: patient oriented x3 HEENT Other: Unremarkable Head: Yes normal to inspection Neck Neck: Yes normal visual inspection Chest Chest palpation & inspection: normal inspection of the chest Resp Auscultation: clear to auscultation bilaterally Cardio Palpation: normal PMI Heart sounds: S1 normal heart sound present, S2 abnormal (slightly soft), no gallops, Murmur heart sound present systolic III/ and at the right sternal border and no rubs GI Palpation (GI): Soft to palpation Back/Spine/Pelvis Other: unremarkable Skin General skin exam: no rashes or lesions noted Neuro General: patient oriented x3 Speech: No Abnormal speech present Extrem General: Yes normal to inspection Psych Mental Status: mental status grossly normal Office Procedures EKG Details: EKG with underlying sinus rhythm at 83/Min; no significant ST-T changes; normal PA and corrected QT; frequent PVCs. [id number], Complete Assessment & Plan Assessment & Plan (1) Non-rheumatic aortic stenosis: Code(s): I35.0 - Nonrheumatic aortic (valve) stenosis Category: Medical Plan: In the recent echocardiogram, mean gradient across aortic valve was 27 mm Hg with a peak of 44 mm Hg. Calculated valve area of 1.1 sq cm. Reported as paradoxical low-flow, moderate to severe aortic stenosis but suspect rather just moderate aortic stenosis based on the measurements. Anyway, clinically he has got absolutely no symptoms. Pathophysiology, symptoms, treatment options discussed in detail. We will recheck an echocardiogram later this year. If any symptoms like chest pain, shortness of breath, dizzy spells or other cardiac symptoms, he will report to us immediately. (2) PVC (premature ventricular contraction): Code(s): I49.3 - Ventricular premature depolarization Category: Medical Plan: Frequent PVCs noted. In a prior Holter, burden of 14%. Clinically, absolutely no symptoms. With preserved LVEF okay to monitor for now. Orders: Orders CA echo transthoracic complete 4 Months I35.0 - Nonrheumatic aortic (valve) stenosis Coding Level of Care Code New Pt Level 4 (83509) Diagnoses Non-rheumatic aortic stenosis I35.0 PVC (premature ventricular contraction) I49.3 CPT Codes EKG - CPT: [id number], Complete ([id number])
== END 2024-02-03 11:14 | disposition home or self-care (01) ==
PROVIDERS: PCP Internal Medicine; Visit Provider Internal Medicine
DX: I35.0 Nonrheumatic aortic (valve) stenosis (principal); I49.3 Ventricular premature depolarization
CPT/HCPCS: 93010; 99214

== ENCOUNTER → 2024-02-03 10:33 | Outpatient (BNVA) | payer MEDICARE, OTHER, SELFPAY | PROVIDERS: PCP Internal Medicine; Visit Provider Internal Medicine | DX: I35.0 Nonrheumatic aortic (valve) stenosis (principal); I49.3 Ventricular premature depolarization | CPT/HCPCS: 93005; 99212 ==

== ENCOUNTER 2024-02-04 09:48 | Outpatient (REF) | payer MEDICARE, OTHER, SELFPAY ==
[2024-02-04 11:03] LABS: MANUAL DIFF FLAG NO
[2024-02-04 11:21] LABS: Alanine Aminotransferase 15 U/L (0-40); Albumin Level 4.2 g/dL (3.5-5.0); Alkaline Phosphatase 41 U/L (39-117); Anion Gap 13 (12-20); Aspartate Amino Transferase 17 U/L (5-37); Bilirubin Total 0.6 mg/dL (0.0-1.0); Blood Urea Nitrogen 22 mg/dL (9-16); Calcium 9.4 mg/dL (8.4-10.2); Carbon Dioxide 28 mmol/L (22-29); Chloride 106 mmol/L (96-108); Cholesterol 166 mg/dL (<200); Estimated Glomerular Filt Rate > 60; Glucose Fasting 103 mg/dL (60-99); HDL Cholesterol 79 mg/dL (>40); LDL Cholesterol Calculated 79 mg/dL (<100); Potassium 4.2 mmol/L (3.3-5.1); Sodium 143 mmol/L (135-145); Triglycerides 41 mg/dL (<150)
[2024-02-04 11:27] LABS: Eosinophils Absolute Auto 0.1 X10*3/uL (0.0-0.4); Eosinophils Percent Auto 2.5 % (0-4); Hematocrit 40.6 % (42.0-52.0); Hemoglobin 13.7 g/dl (14.0-18.0); Imm Gran Abs Auto 0.01 X10*3/uL (0.00-0.03); Imm Gran Pct Auto 0.2 % (0.0-0.4); Lymphocytes Percent Auto 24.9 % (20-40); Mean Corpuscular HGB Conc 33.7 g/dl (31.0-36.0); Mean Corpuscular Hemoglobin 32.1 pg (27.0-33.0); Mean Corpuscular Volume 95.1 fL (80.0-98.0); Monocytes Absolute Auto 0.3 X10*3/uL (0.1-1.2); Monocytes Percent Auto 7.7 % (2-11); Neutrophils Absolute Auto 2.6 x10*3/uL (2.0-8.3); Neutrophils Percent Auto 63.7 % (45-73); Platelet Count 170 X10*3/uL (160-400); Red Blood Count 4.27 X10*6/uL (4.60-5.80); Red Cell Distribution Width 13.8 % (11.0-16.0)
[2024-02-04 11:33] LABS: Estimated Average Glucose 100 mg/dL; Hemoglobin A1c % 5.1 % (<6.0)
[2024-02-04 11:39] LABS: Prostate Specific Antigen Scr 0.69 ng/mL (<0.05-4.0)
[2024-02-04 14:15] LABS: Creatinine Urine 150.48 mg/dL; Microalbum/Creatinine Ratio Ur 8.6 ug/mg cr (<30)
== END 2024-02-04 09:49 | disposition home or self-care (01) ==
LOC: HO.10HDL 09:48
PROVIDERS: Visit Provider Internal Medicine
DX: E78.00 Pure hypercholesterolemia, unspecified (principal); E11.9 Type 2 diabetes mellitus without complications; Z12.5 Encounter for screening for malignant neoplasm of prostate
CPT/HCPCS: 36415; 80053; 80061; 82043; 82570; 83036; 84153; 85025

== ENCOUNTER 2024-03-31 10:21 | Outpatient (AMB) | payer MEDICARE, OTHER, SELFPAY ==
--- NOTE | 2024-03-31 10:26 | AM.OFFWIN_ITS ---
Intake Vital Signs 03/31/24 10:28 Height 5 ft 7 in Weight 154 lb BMI 24.1 BP 110/72 Blood Pressure Location Rt brachial Position Sitting Pulse 84 Pulse Source Pulse Oximeter Pulse Oximetry (%) 97 Oxygen Delivery Method Room Air Intake Visit Reasons: EP-rt cheeck rash Intake Note: Patient here for rash on right cheek that has been present for about 1 week now. Patient Tobacco Use Status: Former Tobacco user Allergies No Known Allergies Allergy (Verified 03/31/24 10:29) Do you need a note to return to daycare/school/sports/work: No HPI EP-rt cheeck rash HPI Details This note is constructed using voice recognition software. While every effort has been made to ensure accuracy, elementary school teacher's aide errors may have been included. The patient is a 73 year old male who presents to the clinic today with facial rash for the past 4 weeks. He notes area to his right cheek and his left cheek that started slightly red, he had no pain, itch, and then started to grow here through it. Once it started to go hair through it about one-week ago it started to be painful if he would bump it. He has not had anything like this before. He denies fever, chills, aches. He has been applying a cream that his had, however he is unsure what it is. [facility] Medical History Diabetes Mild heartburn Elevated cholesterol Surgical History Hx of hernia repair Hx of colonoscopy Family History (Updated 02/03/24 @ 11:08 by Baldev Lindo MD) Unknown No problems noted. 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 ( with dementia) Alcohol intake: current Alcohol intake frequency: holidays/special occasions only Comment: [place]-small glass qod Patient Tobacco Use Status: Former Tobacco user Review of Systems Const All systems reviewed & are unremarkable except as noted in HPI and below Physical Exam Vital Signs: Last Vital Signs Pulse 84 03/31/24 10:28 BP 110/72 03/31/24 10:28 Pulse Ox 97 03/31/24 10:28 Oxygen Delivery Method Room Air 03/31/24 10:28 BMI result Body Mass Index 24.1 Const General: cooperative, healthy appearing, comfortable, no acute distress and well developed Orientation/consciousness: patient oriented x3 Limitations: no limitations Eyes General: appearance normal, both eyes and all related structures Resp Effort & Inspection: normal respiratory effort and able to speak in complete sentences Skin Other: Erythematous, slightly raised plaque to bilateral cheeks, approximately 1 cm on the right, approximately 0.5 cm on the left. There is hair growing through this. No warmth, discharge, raised borders. Neuro General: patient oriented x3 Assessment & Plan Assessment & Plan (1) Dermatitis: Code(s): L30.9 - Dermatitis, unspecified Plan: Prescription sent from [facility] for possible folliculitis. Advised patient to try this, and if after one-week he is not having any improvement okay to try a byhf-pbu-ipdslty hydrocortisone. Advised patient to follow up with worsening symptoms or failure to improve. Plan See above for full details and plan. Medications: New mupirocin 2% 1 appl topical BID 7 days 15 grams 0RF Coding Level of Care Code Est Pt Level 3 (74528) Diagnoses Dermatitis L30.9
[2024-03-31 10:28] VITALS: BP 110/72; PULSE 84; O2SAT 97; BMI 24.1
== END 2024-03-31 11:02 | disposition home or self-care (01) ==
PROVIDERS: PCP Internal Medicine; Visit Provider Registered Nurse
DX: L30.9 Dermatitis, unspecified (principal)

== ENCOUNTER → 2024-03-31 10:21 | Outpatient (BNVA) | payer MEDICARE, OTHER, SELFPAY | PROVIDERS: PCP Internal Medicine | DX: L30.9 Dermatitis, unspecified (principal) | CPT/HCPCS: 99212 ==

== ENCOUNTER 2024-05-11 10:06 | Outpatient (REF) | payer MEDICARE, OTHER, SELFPAY ==
[2024-05-11 11:07] LABS: MANUAL DIFF FLAG NO
[2024-05-11 11:09] LABS: Basophils Percent Auto 0.7 % (0-2); Eosinophils Absolute Auto 0.1 X10*3/uL (0.0-0.4); Eosinophils Percent Auto 1.4 % (0-4); Hematocrit 40.1 % (42.0-52.0); Hemoglobin 13.7 g/dl (14.0-18.0); Imm Gran Abs Auto 0.01 X10*3/uL (0.00-0.03); Imm Gran Pct Auto 0.2 % (0.0-0.4); Lymphocytes Absolute Auto 1.1 X10*3/uL (1.2-4.9); Lymphocytes Percent Auto 24.8 % (20-40); Mean Corpuscular HGB Conc 34.2 g/dl (31.0-36.0); Mean Corpuscular Hemoglobin 31.9 pg (27.0-33.0); Mean Corpuscular Volume 93.3 fL (80.0-98.0); Mean Platelet Volume 10.5 fL (9.4-12.4); Monocytes Absolute Auto 0.3 X10*3/uL (0.1-1.2); Monocytes Percent Auto 7.7 % (2-11); Neutrophils Absolute Auto 2.9 x10*3/uL (2.0-8.3); Neutrophils Percent Auto 65.2 % (45-73); Platelet Count 169 X10*3/uL (160-400); Red Cell Distribution Width 13.6 % (11.0-16.0); White Blood Count 4.4 X10*3/uL (4.8-10.8)
[2024-05-11 11:27] LABS: Estimated Average Glucose 108 mg/dL; Hemoglobin A1C 128.2024 umol/L; Hemoglobin A1c % 5.4 % (<6.0); Total Hemoglobin (HGBA1C) 3644.4355 umol/L
[2024-05-11 11:33] LABS: Alanine Aminotransferase 21 U/L (0-40); Albumin Level 4.3 g/dL (3.5-5.0); Alkaline Phosphatase 47 U/L (39-117); Anion Gap 13 (12-20); Aspartate Amino Transferase 24 U/L (5-37); Bilirubin Total 0.5 mg/dL (0.0-1.0); Blood Urea Nitrogen 27 mg/dL (9-16); Calcium 9.4 mg/dL (8.4-10.2); Carbon Dioxide 27 mmol/L (22-29); Chloride 106 mmol/L (96-108); Estimated Glomerular Filt Rate > 60; Glucose Random 118 mg/dL (60-115); Sodium 142 mmol/L (135-145); Total Protein 7.3 g/dL (6.5-8.0)
[2024-05-11 11:48] LABS: Creatinine Urine 83.35 mg/dL; Microalbumin Urine < 5.0 mg/L
== END 2024-05-11 10:07 | disposition home or self-care (01) ==
LOC: HO.10HDL 10:06
PROVIDERS: Visit Provider Internal Medicine
DX: E78.00 Pure hypercholesterolemia, unspecified (principal); E11.9 Type 2 diabetes mellitus without complications
CPT/HCPCS: 36415; 80053; 82043; 82570; 83036; 85025

== ENCOUNTER → 2024-05-19 08:32 | Outpatient (REF) | payer MEDICARE, OTHER, SELFPAY ==
--- NOTE | 2024-05-19 08:36 | CA_ITS ---
Transthoracic Echocardiogram Patient (Last, First, Middle): Phill Pang S Gender: Male Date of : 1950 Age: 74 Procedure Date: 05/19/2024 Procedure Type: Transthoracic Echocardiogram Location: OP Height: 167.64 cm Weight: 81. kg BSA: 1.91 m2 Heart Rate: bpm BP: 110 / 72 mmHg Transition Advisor: ALLY Referring MD: Baldev Lindo MD Symptoms: I35.0 - Nonrheumatic aortic (valve) stenosis Study Quality: Fair Conclusions: - 1. Normal LV ejection fraction 55-60% with grade 1 diastolic dysfunction 2. Moderate to severe aortic stenosis with mean gradient of 38 mm Hg 3. Normal RV systolic pressure 4. No gross pericardial effusion Findings Left Ventricle Normal left ventricular size, thickness, and systolic function. The visually estimated ejection fraction is between 55-60%. Spectral Doppler is indicative of an impaired relaxation filling pattern. E/E prime ratio is <8, consistent with normal filling pressures. Evidence suggests grade I (mild) diastolic dysfunction. Right Ventricle Normal right ventricular cavity size and systolic function. Atria Both atria are normal in size. There is lipomatous hypertrophy of the interatrial septum. There is no evidence of interatrial shunt. Aortic Valve There is moderate calcification of the aortic valve. There is moderate thickening of the aortic valve. There is moderate to severe aortic valve stenosis. The peak aortic gradient is 58 mmHg.The mean gradient is 38 mmHg. There is no aortic valve regurgitation. Mitral Valve There is mild anterior and posterior mitral leaflet thickening. There is trace mitral valve regurgitation. There is no mitral valve stenosis. Pulmonic Valve The pulmonic valve is likely normal. Tricuspid Valve Normal tricuspid valve structure. There is mild tricuspid valve regurgitation. Normal right atrial pressure. There is no evidence of pulmonary hypertension. Great Vessels All visible segments of the aorta are normal in size. The pulmonary artery was not well visualized. There is no dilatation of the ascending aorta measuring 3.00 cm. Venous The inferior vena cava is normal in size and collapses greater than 50% with inspiration. Pericardium/Pleural There is no evidence of pericardial effusion. Prior Study Comparison No significant change compared to prior study dated: 10/22/2023. Measurements 2D Linear Measurements IVSd: 0.77 0.6-0.9/0.6-1.0 cm LVIDd: 5.26 3.9-5.3/4.2-5.9 cm LVIDd Index: 2.75 2.4-3.2/2.2-3.1 cm/m2 LVIDs: 3.30 2.0-3.6 cm LVPWd: 0.98 0.7-1.1 cm Ao Root: 3.20 2.1-3.5 cm LA Diam: 3.60 2.7-3.8/3.0-4.0 cm LAIDs Index: 1.88 1.5-2.3 cm/m2 LV Mass: 206.90 67-162/88-224 g LV Mass Index: 108.32 43-95/49-115 g/m2 LVOT Diam: 2.20 3.0+(-)1.3 cm 2D Systolic Function EF 4C: 54.60 >55% EF 2C: 54.90 >55% EF BiP: 55.40 >55% Mitral Valve MV Pk E: 0.86 MV PK A: 1.03 MV Decel Time: 136.00 E/A: 0.80 E'Lateral: 10.30 E'Medial: 10.10 E/E' Med: 8.50 E/E' Lat: 8.40 PHT: 40.00 MVA PHT: 5.50 Decel [place]: 6.33 Aortic Valve AoV Pk Cheikh: 3.81 AoV Mn Cheikh: 2.99 AoV VTI: 0.95 AoV Pk Grad: 58.00 Aov Mn Grad: 38.00 LEXI Cont.VTI: 1.04 LVOT LVOT Pk Cheikh: 0.89 LVOT Mn Cheikh: 0.58 LVOT VTI: 0.26 LVOT Pk Grad: 3.00 LVOT Mn Grad: 2.00 LVOT Diam: 2.20 LVOT Area: 3.80 Diastolic Function MV Pk E: 0.86 MV Pk A: 1.03 E/A: 0.80 E'Medial: 10.10 E/E' Med: 8.50 E' Laterial: 10.30 E/E' Lat: 8.40 Right Ventricle TAPSE (mm): 26.10 TVS' Cheikh: 16.20 Tricuspid Valve TR Pk Cheikh: 2.62 TR Pk Grad: 27.00 RA Press: 3.00 RVSP: 30.00 Great Vessels Aorta Ao Root-2D: 3.20 2.0-3.7 cm Ao Asc: 3.00 2.1-3.4 cm Ao Arch: 2.70 Updated in Other Vendor System with Status of Final Enoch Dale MD electronically signed on 05/20/2024 5:23:11 PM with status of Final
== END ==
LOC: HO.CARD 08:32
PROVIDERS: PCP Internal Medicine; Visit Provider Internal Medicine
DX: I35.0 Nonrheumatic aortic (valve) stenosis (principal)
CPT/HCPCS: 93306

== ENCOUNTER → 2024-05-19 08:36 | Outpatient (BNV) | payer MEDICARE, OTHER, SELFPAY | PROVIDERS: PCP Internal Medicine; Visit Provider Internal Medicine Cardiovascular Disease | DX: I35.0 Nonrheumatic aortic (valve) stenosis (principal); I35.8 Other nonrheumatic aortic valve disorders; I36.1 Nonrheumatic tricuspid (valve) insufficiency | CPT/HCPCS: 93306 ==

== ENCOUNTER 2024-06-03 10:22 | Outpatient (AMB) | payer MEDICARE, OTHER, SELFPAY ==
[2024-06-03 10:26] VITALS: BP 92/58; PULSE 82; BMI 23.5
--- NOTE | 2024-06-03 10:26 | MHC.OFFVIS ---
Vital Signs 06/03/24 10:26 Height 5 ft 7 in Weight 150 lb 5.684 oz BMI 23.5 BP 92/58 L Blood Pressure Location Lt brachial Position Sitting Pulse 82 Pulse Source Pulse Oximeter Intake Visit Reasons: 4 mth f/up [employer] Required: No Accompanied by: Son Allergies No Known Allergies Allergy (Verified 03/31/24 10:29) Medication List - Last Reconciled 06/03/24 by Baldev Lindo MD coQ10 (ubiquinol) 200 mg PO DAILY metformin 500 mg PO DAILY multivitamin 1 tab PO DAILY mupirocin 2% 1 appl topical BID 7 days simvastatin 20 mg PO DAILY HPI Comments Details: Phill returns for follow-up. Recently seen in consultation regarding aortic stenosis. No prior cardiac history including coronary disease or myocardial infarction or cardiomyopathy or in fact any other cardiac issues. Son is here for the appointment. He states that over the last few weeks or so, patient has been deteriorating. He is not able to remember things and not clear if he is having any dementia type presentation but according to son, somewhat progressive over the last few weeks. His window of memory is only about 2 hours or so apparently. Otherwise, from cardiac no specific symptoms like angina. He seems to be doing okay. He has completed a repeat echocardiogram. [facility] Medical History Diabetes Mild heartburn Elevated cholesterol Surgical History Hx of hernia repair Hx of colonoscopy Family History Unknown No problems noted. Social History Are you a primary primary care md to a significant other at home: Yes ( with dementia) Alcohol intake: current Alcohol intake frequency: holidays/special occasions only Comment: [place]-small glass qod Patient Tobacco Use Status: Former Tobacco user Review of Systems Const Denies chills, Denies fatigue, Denies fever(s), Denies weight gain and Denies weight loss ENT Denies dizziness Card Denies chest pain, Denies leg edema, Denies lightheadedness, Denies palpitations, Denies dyspnea on exertion, Denies orthopnea and Denies other Resp Denies cough and Denies dyspnea on exertion GI Denies hematochezia and Denies change in stool character Musc Denies abnormal gait, Denies muscle weakness, Denies numbness, Denies radiating pain into limb and Denies tingling Neuro Denies abnormal gait, Denies dizziness, Denies numbness and Denies tingling Endo Denies fatigue and Denies palpitations Physical Exam Vital Signs: Last Vital Signs Pulse 82 06/03/24 10:26 BP 92/58 L 06/03/24 10:26 BMI result Body Mass Index 23.5 Const General: comfortable and no acute distress Orientation/consciousness: patient oriented x3 HEENT Other: Unremarkable Head: Yes normal to inspection Neck Neck: Yes normal visual inspection Chest Chest palpation & inspection: normal inspection of the chest Resp Auscultation: clear to auscultation bilaterally Cardio Palpation: normal PMI Heart sounds: S1 normal heart sound present, S2 normal heart sound present, no gallops, Murmur heart sound present systolic III/ and no rubs GI Palpation (GI): Soft to palpation Back/Spine/Pelvis Other: unremarkable Skin General skin exam: no rashes or lesions noted Neuro General: patient oriented x3 Extrem General: Yes normal to inspection Psych Mental Status: mental status grossly normal Assessment & Plan Assessment & Plan (1) Non-rheumatic aortic stenosis: Code(s): I35.0 - Nonrheumatic aortic (valve) stenosis Category: Medical Plan: In the recent echocardiogram, LVEF 55-60%. Peak gradient across aortic valve 58 mm Hg with a mean of 38 mm Hg. Calculated valve area of 1.04 sqcm. Overall, moderate to severe stenosis. Clinically, asymptomatic. Cardinal symptoms of aortic stenosis discussed including shortness of breath, presyncope, angina. If any such symptoms, advised to contact us immediately. Discussed with son who came for the appointment as patient has poor memory. (2) PVC (premature ventricular contraction): Code(s): I49.3 - Ventricular premature depolarization Category: Medical Plan: Frequent PVCs noted. In a prior Holter, burden of 14%. Clinically, absolutely no symptoms. With preserved LVEF okay to monitor for now. (3) Memory deficit: Code(s): R41.3 - Other amnesia Category: Medical Plan: Per son, patient has deteriorated recently with forgetfulness extra. Unclear if it is dementia. Will need to see Neurology. If it continues to progress, could affect candidacy for cardiac interventions. Orders: Orders CA echo transthoracic complete 6 Months I35.0 - Nonrheumatic aortic (valve) stenosis Coding Level of Care Code Est Pt Level 4 (36954) Diagnoses Non-rheumatic aortic stenosis I35.0 PVC (premature ventricular contraction) I49.3 Memory deficit R41.3
--- OUTSIDE RECORDS SUMMARY | 2024-06-09 01:34 | XMS_ITS | Patient Health Record ---
Author Organization [facility] Address [address] [place] [address] Care Team Providers Care Animal Shelter Supervisor Name Role Phone Martín Krishnan MD Primary Care Provider Ernie Kumar Unavailable [phone] REASON FOR REFERRAL No Information MEDICATIONS Medication SIG (Take, Route, Fr equency, Duration) Notes Start Date End Date Status Multivitamin - 1 tablet Orally Once a day for 30 day(s) Active metFORMIN HCl 500 MG 1 tablet with meals Orally Once a day Active Simvastatin 20 MG 1 tablet in the even ing Orally Once a day Active IMMUNIZATIONS Vaccine Route Administration Date Status Comme nts Influenza Unknown 03/30/2020 Administered SOCIAL HISTORY Sex Assigned At : Social History Observation Description Sex Assigned At Unknown PROBLEMS Problem Type ICD Code Onset Dates Problem Status W/U Status Risk SNOMED Code Notes Problem Encounter for screening for malignant neoplasm of colon (Z12.11) Active confirmed 333289903 Problem History of adenomatous polyp of colon (Z86.010) Active confirmed 965904662 Problem Preprocedural examination (Z01.818) Active confirmed 585611854183111 Problem High risk medications (not anticoagulants) long-term use (Z79.899) Active confirmed 474114934 PLAN OF TREATMENT Pending Test Test Name Order Date GI BIOPSY 06/05/2015 Pathology 12/01/2020 Future Test Test Name Order Date COLONOSCOPY 03/29/2015 COLONOSCOPY 11/21/2020 Insurance Providers Payer Name Payer Address Payer Phone Subscriber Number Group Number Insured Name Patient Relationship to Insured Coverage Start Date Coverage End Date MEDICARE OF [place] [address] [facility] [place] [address] [id number] SUSANNA DORADO Self - patient is the [facility] [address] [place] [address] [id number] SUSANNA DORADO Self - patient is the insured MEDICAL (GENERAL) HISTORY Medical History History ICD Code Screening colonoscopy 12-29-19 05--negative except for hyperplastic polyps, diverticulosis, and internal hemorrhoids Denies [place],CVA,Lung disease,renal disease NIDDM Hyperipidemia Colonoscopy 05/2015 with removal of 2 sm all tubular adenomas Surgical History Surgery Date(Month/Year) Hernia surgery as an infant Tonsillectomy
== END 2024-06-03 11:23 | disposition home or self-care (01) ==
PROVIDERS: PCP Internal Medicine; Visit Provider Internal Medicine
DX: I35.0 Nonrheumatic aortic (valve) stenosis (principal); I49.3 Ventricular premature depolarization; R41.3 Other amnesia
CPT/HCPCS: 99214

== ENCOUNTER → 2024-06-03 10:22 | Outpatient (BNVA) | payer MEDICARE, OTHER, SELFPAY | PROVIDERS: PCP Internal Medicine; Visit Provider Internal Medicine | DX: I35.0 Nonrheumatic aortic (valve) stenosis (principal); I49.3 Ventricular premature depolarization; R41.3 Other amnesia | CPT/HCPCS: 99212 ==

== ENCOUNTER → 2024-12-01 14:42 | Outpatient (REF) | payer MEDICARE, OTHER, SELFPAY ==
--- NOTE | 2024-12-01 14:45 | CA_ITS ---
Transthoracic Echocardiogram Patient (Last, First, Middle): Phill Pang S Gender: Male Date of : 1950 Age: 74 Procedure Date: 12/01/2024 Procedure Type: Transthoracic Echocardiogram Location: OP Height: 172.72 cm Weight: 68.04 kg BSA: 1.81 m2 Heart Rate: bpm BP: 90 / 50 mmHg Renewals Representative: Referring MD: Baldev Lindo MD Symptoms: I35.0 - Nonrheumatic aortic (valve) stenosis Study Quality: Good ECG Rhythm: Sinus Conclusions: - The left ventricular systolic function is normal. The calculated ejection fraction is 63% by biplane method. - There is severe aortic valve stenosis. Findings Left Ventricle Normal left ventricular cavity size. There is normal left ventricular wall thickness. The left ventricular systolic function is normal. The calculated ejection fraction is 63% by biplane method. There is no evidence of regional wall motion abnormalities. Diastolic function is normal for age. Right Ventricle Mildly increased right ventricular cavity size. There is normal right ventricular systolic function. Atria Both atria are normal in size. Aortic Valve There is severe calcification of the aortic valve. There is severe aortic valve stenosis. The peak aortic velocity is 3.91 m/s with a calculated peak gradient of 61 mmHg. The mean gradient is 39 mmHg. The aortic valve area is 0.78 cm2. There is no aortic valve regurgitation. Mitral Valve The mitral valve appears normal. There is no mitral valve regurgitation. There is no mitral valve stenosis. Pulmonic Valve The pulmonic valve is likely normal. Tricuspid Valve There is trace tricuspid valve regurgitation. There is no evidence of pulmonary hypertension. Great Vessels The asc aorta is normal in size. Venous The inferior vena cava is mildly dilated and collapses greater than 50% with inspiration. Pericardium/Pleural There is no evidence of pericardial effusion. Prior Study Comparison Changes noted compared to prior study dated: 05/19/2024. Slight progression of aortic stenosis. Measurements 2D Linear Measurements IVSd: 0.82 0.6-0.9/0.6-1.0 cm LVIDd: 5.15 3.9-5.3/4.2-5.9 cm LVIDd Index: 2.85 2.4-3.2/2.2-3.1 cm/m2 LVIDs: 3.30 2.0-3.6 cm LVPWd: 0.88 0.7-1.1 cm Ao Root: 3.30 2.1-3.5 cm LA Diam: 3.40 2.7-3.8/3.0-4.0 cm LAIDs Index: 1.88 1.5-2.3 cm/m2 LV Mass: 192.22 67-162/88-224 g LV Mass Index: 106.20 43-95/49-115 g/m2 LVOT Diam: 2.00 3.0+(-)1.3 cm 2D Systolic Function EF 4C: 56.40 >55% EF 2C: 68.50 >55% EF BiP: 62.80 >55% Mitral Valve MV Pk E: 0.97 MV PK A: 0.93 MV Decel Time: 170.00 E/A: 1.00 E'Lateral: 9.46 E'Medial: 7.40 E/E' Med: 13.10 E/E' Lat: 10.30 PHT: 50.00 MVA PHT: 4.40 Decel [place]: 5.72 Aortic Valve AoV Pk Cheikh: 3.91 AoV Mn Cheikh: 2.95 AoV VTI: 1.03 AoV Pk Grad: 61.00 Aov Mn Grad: 39.00 LEXI Cont.VTI: 0.78 LVOT LVOT Pk Cheikh: 0.95 LVOT Mn Cheikh: 0.62 LVOT VTI: 0.26 LVOT Pk Grad: 4.00 LVOT Mn Grad: 2.00 LVOT Diam: 2.00 LVOT Area: 3.14 Diastolic Function MV Pk E: 0.97 MV Pk A: 0.93 E/A: 1.00 E'Medial: 7.40 E/E' Med: 13.10 E' Laterial: 9.46 E/E' Lat: 10.30 Right Ventricle TAPSE (mm): 31.00 TVS' Cheikh: 14.00 Tricuspid Valve TR Pk Cheikh: 2.27 TR Pk Grad: 21.00 RA Press: 8.00 RVSP: 29.00 Great Vessels Aorta Ao Root-2D: 3.30 2.0-3.7 cm Ao Asc: 3.00 2.1-3.4 cm Pulmonary Valve PV Pk Cheikh: 0.82 Peak PV Grad: 3.00 Updated in Other Vendor System with Status of Final Baldev Lindo MD electronically signed on 12/03/2024 10:30:04 AM with status of Final
--- OUTSIDE RECORDS SUMMARY | 2024-12-01 14:46 | XMS_ITS | Patient Health Record ---
Author Organization [facility] Address [address] [place] [address] Care Team Providers Care Conduit Cleaner Name Role Phone Martín Krishnan MD Primary Care Provider Ernie Kumar Unavailable [phone] Reason For Referral No Information Medications Medication SIG (Take, Route, Fr equency, Duration) Notes Start Date End Date Status Multivitamin - 1 tablet Orally Once a day for 30 day(s) Active metFORMIN HCl 500 MG 1 tablet with meals Orally Once a day Active Simvastatin 20 MG 1 tablet in the even ing Orally Once a day Active Immunizations Vaccine Route Administration Date Status Comme nts Influenza Unknown 03/30/2020 Administered Problems Problem Type SNOMED Code ICD Code Onset Dates Problem Status W/U Status Risk Notes Problem 889735342 Encounter for screening for malignant neoplasm of colon (Z12.11) Active confirmed Problem 110381181 History of adenomatous polyp of colon (Z86.010) Active confirmed Problem 615217301973721 Preprocedural examination (Z01.818) Active confirmed Problem 597281044 High risk medications (not anticoagulants) long-term use (Z79.899) Active confirmed Plan Of Treatment Pending Test Test Name Order Date GI BIOPSY 06/05/2015 Pathology 12/01/2020 Future Test Test Name Order Date COLONOSCOPY 03/29/2015 COLONOSCOPY 11/21/2020 Insurance Providers Payer Name Payer Address Payer Phone Subscriber Number Group Number Insured Name Patient Relationship to Insured Coverage Start Date Coverage End Date MEDICARE OF [place] [address] [place] [address] [phone] [id number] SUSANNA DORADO Self - patient is the insured [facility] [address] [place] [address] [id number] SUSANNA DORADO Self - patient is the insured Medical (General) History Medical History History ICD Code Screening colonoscopy 12-29-19 05--negative except for hyperplastic polyps, diverticulosis, and internal hemorrhoids Denies [place],CVA,Lung disease,renal disease NIDDM Hyperipidemia Colonoscopy 05/2015 with removal of 2 sm all tubular adenomas Surgical History Surgery Date(Month/Year) Hernia surgery as an infant Tonsillectomy
== END ==
LOC: HO.CARD 14:42
PROVIDERS: Visit Provider Internal Medicine
DX: I35.0 Nonrheumatic aortic (valve) stenosis (principal)
CPT/HCPCS: 93306; Q9957

== ENCOUNTER → 2024-12-01 14:45 | Outpatient (BNV) | payer MEDICARE, OTHER, SELFPAY | PROVIDERS: Visit Provider Internal Medicine | DX: I35.0 Nonrheumatic aortic (valve) stenosis (principal) | CPT/HCPCS: 93306 ==

== ENCOUNTER 2024-12-09 10:18 | Outpatient (AMB) | payer MEDICARE, OTHER, SELFPAY ==
--- NOTE | 2024-12-09 10:23 | MHC.OFFVIS ---
Vital Signs 12/09/24 10:32 Height 5 ft 7 in Weight 163 lb 9.328 oz BMI 25.6 BP 100/60 Blood Pressure Location Lt brachial Position Sitting Pulse 76 Pulse Source Monitor Intake Visit Reasons: 6m follow up Manager Relationship Required: No Accompanied by: Son Allergies No Known Allergies Allergy (Verified 03/31/24 10:29) Medication List - Last Reconciled 12/09/24 by Baldev Lindo MD coQ10 (ubiquinol) 200 mg PO DAILY metformin 500 mg PO DAILY multivitamin 1 tab PO DAILY mupirocin 2% 1 appl topical BID 7 days simvastatin 20 mg PO DAILY HPI Comments Details: Phill returns for follow-up regarding aortic stenosis. Patient also has significant dementia from Alzheimer's. According to son, he does not have any clear-cut symptoms like angina or shortness of breath or in fact anything cardiac related. [facility] Medical History Diabetes Mild heartburn Elevated cholesterol Surgical History Hx of hernia repair Hx of colonoscopy Family History Unknown No problems noted. Social History Are you a primary progressive care unit registered nurse to a significant other at home: Yes ( with dementia) Alcohol intake: current Alcohol intake frequency: holidays/special occasions only Comment: [place]-small glass qod Patient Tobacco Use Status: Former Tobacco user Review of Systems Const Denies chills, Denies fatigue, Denies fever(s), Denies frequent falls, Denies weakness, Denies weight gain and Denies weight loss ENT Denies dizziness Card Denies chest pain, Denies leg edema, Denies lightheadedness, Denies palpitations, Denies dyspnea and Denies dyspnea on exertion Resp Denies cough, Denies dyspnea and Denies dyspnea on exertion GI Denies hematochezia Musc Denies abnormal gait, Denies muscle weakness, Denies numbness, Denies radiating pain into limb and Denies tingling Neuro Denies abnormal gait, Denies dizziness, Denies frequent falls, Denies numbness, Denies tingling and Denies weakness Endo Denies fatigue and Denies palpitations Physical Exam Vital Signs: Last Vital Signs Pulse 76 12/09/24 10:32 BP 100/60 12/09/24 10:32 BMI result Body Mass Index 25.6 Const General: comfortable and no acute distress Orientation/consciousness: patient oriented x3 HEENT Other: Unremarkable Head: Yes normal to inspection Neck Neck: Yes normal visual inspection Chest Chest palpation & inspection: normal inspection of the chest Resp Auscultation: clear to auscultation bilaterally Cardio Palpation: normal PMI Heart sounds: S1 normal heart sound present, S2 normal heart sound present, no gallops, Murmur heart sound present systolic III/ and at the right sternal border and no rubs GI Palpation (GI): Soft to palpation Back/Spine/Pelvis Other: unremarkable Skin General skin exam: no rashes or lesions noted Neuro General: patient oriented x3 Extrem General: Yes normal to inspection Psych Mental Status: mental status grossly normal Office Procedures EKG Details: EKG with underlying sinus rhythm at 76/Min; no ischemic changes; [place] [id number], Complete Assessment & Plan Assessment & Plan (1) Non-rheumatic aortic stenosis: Code(s): I35.0 - Nonrheumatic aortic (valve) stenosis Category: Medical Plan: In the recent echocardiogram, LVEF is 63%. Mean gradient across aortic valve was 39 mm Hg with a calculated valve area of 0.78 cm2. Findings discussed with son in detail. Clinically, he has got no overt symptoms. However, considering advanced Alzheimer's and fact that will only progress with time, we discussed the fact that patient may not be suitable candidate for any interventions. Son totally agrees and they are not interested in any procedures either. In case, there are any clear-cut concerns, then son will contact us. (2) PVC (premature ventricular contraction): Code(s): I49.3 - Ventricular premature depolarization Category: Medical Plan: History of frequent PVCs and 14% burden in a prior Holter. Clinically, he has got no symptoms. No specific implications. (3) Alzheimer's dementia: Code(s): G30.9 - Alzheimer's disease, unspecified; F02.80 - Dementia in other diseases classified elsewhere, unspecified severity, without behavioral disturbance, psychotic disturbance, mood disturbance, and anxiety Category: Medical Plan: Because of Alzheimer's and poor memory and comprehension, not considered to be suitable candidate to go through invasive cardiac procedures. Hence conservative care only. Plan For future, son will contact us with any concerns. Otherwise, he would like to just monitor him. Discussion Notes During the consultation, I discussed with the patient and family the state of the patient's aortic valve stenosis, emphasizing its progressive nature and the decision not to pursue surgical intervention due to the patient's dementia and preferences for non-invasive management. We went over the benefits and risks of surgical interventions, concluding that risks outweigh benefits considering the absence of significant symptoms like angina or syncope. We reviewed the patient's advance directive, affirming the previous decision for no invasive interventions. My recommendation was to continue with routine monitoring and to contact medical services if new symptoms develop. The patient and family agreed with the outlined plan. Patient was informed and verbally consented to the use of an ambient scribe for clinic note documentation during this visit. Patient Instructions: - Watch for symptoms like chest pain or breathing difficulties and seek immediate care if they develop. - Continue with regular walking exercises. - Address any questions or changes with your cardiology team. - Follow the current advance directive for non-invasive care. Coding Level of Care Code Est Pt Level 4 (43256) Complex EM visit Add On G2211 Diagnoses Non-rheumatic aortic stenosis I35.0 PVC (premature ventricular contraction) I49.3 Alzheimer's dementia G30.9; F02.80 CPT Codes EKG - CPT: 49624-[id number], Complete ([id number])
[2024-12-09 10:32] VITALS: BP 100/60; PULSE 76; BMI 25.6
--- OUTSIDE RECORDS SUMMARY | 2024-12-09 11:55 | XMS_ITS | Patient Health Record ---
Author Organization [facility] Address [address] [place] [address] Care Team Providers Care Deal Architect Name Role Phone Martín Krishnan MD Primary Care Provider Ernie Kumar Unavailable [phone] Reason For Referral No Information Medications Medication [...] Problem Status W/U Status Risk Notes Problem 000631559 Encounter for screening for malignant neoplasm of colon (Z12.11) Active confirmed Problem 669503012 History of adenomatous polyp of colon (Z86.010) Active confirmed Problem 578111103818757 Preprocedural examination (Z01.818) Active confirmed Problem 973936140 High risk medications (not anticoagulants) long-term use [...] [place] [address] [place] [address] [id number] SUSANNA DORADO Self - patient is the insured [facility] [address] [place] [address] [id number] SUSANNA DORADO Self - patient is the insured Medical (General) History Medical History History ICD Code Screening colonoscopy 12-29-19 05--negative except for hyperplastic polyps, diverticulosis, and internal hemorrhoids Denies [place],CVA,Lung disease,renal disease NIDDM Hyperipidemia Colonoscopy 05/2015 with removal of 2 sm all tubular adenomas Surgical History Surgery Date(Month/Year) Hernia surgery as an infant Tonsillectomy
== END 2024-12-09 10:49 | disposition home or self-care (01) ==
LOC: HO.HCS 10:19
PROVIDERS: PCP Internal Medicine; Visit Provider Internal Medicine
DX: I35.0 Nonrheumatic aortic (valve) stenosis (principal); I49.3 Ventricular premature depolarization; G30.9 Alzheimer's disease, unspecified; F02.80 Dementia in other diseases classified elsewhere, unspecified severity, without behavioral disturbance, psychotic disturbance, mood disturbance, and anxiety
CPT/HCPCS: 93010; 99214; G2211

== ENCOUNTER → 2024-12-09 10:18 | Outpatient (BNVA) | payer MEDICARE, OTHER, SELFPAY | PROVIDERS: PCP Internal Medicine; Visit Provider Internal Medicine | DX: I35.0 Nonrheumatic aortic (valve) stenosis (principal); I49.3 Ventricular premature depolarization; G30.9 Alzheimer's disease, unspecified; F02.80 Dementia in other diseases classified elsewhere, unspecified severity, without behavioral disturbance, psychotic disturbance, mood disturbance, and anxiety | CPT/HCPCS: 93005; 99212 ==